=== PATIENT | female | born 2000 | race Caucasian/White ===

== ENCOUNTER 2023-03-06 07:01 | Outpatient (CLI) | payer BC | END 2023-03-06 07:02 | disposition home or self-care (01) | LOC: BICULT 07:01 | PROVIDERS: ATTEND Family Medicine | DX: R10.2 Pelvic and perineal pain (principal); R10.9 Unspecified abdominal pain; N83.202 Unspecified ovarian cyst, left side | CPT/HCPCS: 76700; 76856 ==